=== PATIENT | female | born 1985 | race Caucasian/White ===

== ENCOUNTER 2016-11-04 15:16 | Emergency (ER) | payer OTHER ==
[~2016-11-04] VITALS: Ht 160 cm; Wt 47.7 kg
[2016-11-04 15:19] VITALS: BP 115/62; PULSE 90; RESP 16; O2SAT 100
[2016-11-04 16:15] LABS: BASOPHILS % (AUTO) 0.2 % (0-3); EOSINOPHILS % (AUTO) 0.5 % (0-5); MONOCYTES % (AUTO) 11.2 % (4-12); Mean Corpuscular Hemoglobin 28.1 pg (27.0-35.0); Mean Corpuscular Volume 85.9 fL (81-100); NEUTROPHILS % (AUTO) 72.3 % (40-74); Platelet Count 227 bil/L (150-400)
[2016-11-04] MEDS ORDERED: 0.9% Sodium Chloride 1,000 ML IV ONE (16:17)
[2016-11-04 16:20] LABS: Magnesium 1.8 mg/dL (1.6-2.6)
[2016-11-04] MEDS ORDERED: Ondansetron 2 mg/mL 2 mL Inj IVPUSH ONE (16:20)
[2016-11-04] MEDS: HYDROmorphone 0.5 mg/0.5 mL iSecure Syringe IVPUSH PRN ×3 (16:25→17:58)
--- NOTE | 2016-11-04 16:36 | ED.REPORT ---
HPI-General Illness Date of Service Nov 04, 2016 ED Provider: Noah Dc MD Pt is a 31 y/o female with a hx of kidney stones who reports to the ER complaining of severe LLQ abdominal pain onset 14 days ago, worsening in severity today. The patient radiates to her left flank and down into her groin. 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 Upon initial onset of pain 14 days ago pt took Macrobid for 5 days, which slightly improved symptoms. Pt has not yet passed a kidney stone that she knows of, as she has been straining her urine. Her pain is similar in quality to previous kidney stone. Pt had a kidney stone in [address] performed at the time. She reports associated chills and nausea but denies fever or vomiting. Nursing Notes Stated Complaint: POSSIBLE KIDNEY STONE Chief Complaint: Female Abdominal Pain Nursing Notes Reviewed: Yes Allergies: Coded Allergies: No Known Allergies (Unverified , 11/04/16) Scheduled Tamsulosin (Flomax) 0.4 Mg Capsule 0.4 MG PO DAILY Scheduled PRN Ondansetron ODT (Zofran ODT) 4 Mg Tablet 4 MG PO Q4H PRN PRN For Nausea oxyCODONE-Acetaminophen 5-325 mg (oxyCODONE-Acetaminophen 5-325 mg) 1 Each Tablet 1 TAB PO Q4H PRN PRN For Pain General Time Seen by MD: 15:28 Chief Complaint Abdominal pain (LLQ) Hx Obtained From: Patient Arrived By: Walk-in Sudden in Onset?: Yes Onset Occurred: More than a week ago... (2 weeks) Symptom Duration: Since onset Location: : Abdomen: Back Quality: Painful Severity: Current: Severe Severity: Maximum: Severe Recent Healthcare: No recent doctor visit, No recent hospitalization Similar Sx Previous: Yes Past Medical History Past Medical History kidney stones Past Surgical History none reported Smoking History Unknown if Ever Smoker Social History Alcohol Use: "Social" Other Social History: Good social support, Local resident Ambulatory Status Independent Review of Systems Full Review of Systems Constitutional: Reports: Chills, Malaise, Denies: Fever GI: Reports: Abdominal pain, Nausea, Denies: Vomiting Female: Reports: Flank pain, Hematuria, Urinary frequency Musculoskeletal: Reports: Back pain Complete sys rev & neg: except as marked. Physical Exam Vital Signs Vital Signs Date Time Temp Pulse Resp B/P Pulse Ox O2 Delivery O2 Flow Rate FiO2 11/04/16 18:09 66 16 94/57 97 Room Air 11/04/16 15:19 36.5 90 16 115/62 100 Room Air Initial VS: Reviewed Extremities: Vascular intact, Neuro intact Neurologic: Alert, Oriented, Nonfocal Psychiatric: Mood/affect normal, Behavior normal, Normal thought content General/Constitutional: Awake, Alert Head / Eyes: Atraumatic, Normocephalic, PERRL ENT: Airway patent, Mucous membranes moist Neck: Supple, Full range of motion Respiratory / Chest: Atraumatic, Breath sounds NL, Breath sounds = bilat, No respiratory distress, No rales, No rhonchi, No wheezing Cardiovascular: Heart rate NL, Regular rhythm, Heart sounds NL, No gallop, No murmurs, No rubs Tenderness/Guarding/Rebound: Positive: Tender LLQ... (Mild) Back: No midline vertebral tend Flank / Spine / Paraspinal: Positive: Flank tender L Skin: No rash, Warm, Dry Interpretation & Diagnostics CT KUB IMPRESSION: 1. A 3 x 5 m obstructing stone at the left UVJ causing mild left hydronephrosis and hydroureter. 2. Old granulomatous disease in the right lung base. Dictated by: Chris Ye M.D. on 11/04/2016 at 16:59 Approved by: Chris Ye M.D. on 11/04/2016 at 16:59 Lab Results Interpretation Result Diagram: 11/04/16 1530 11/04/16 1530 Test 11/04/16 15:30 White Blood Count 14.6th/mm3 (3.8-10.1) Red Blood Count 4.55mil/mm3 (3.90-5.20) Hemoglobin 12.8g/dL (12.0-15.6) Hematocrit 39.1% (35.0-46.0) Mean Corpuscular Volume 85.9fL (81-100) Mean Corpuscular Hemoglobin 28.1pg (27.0-35.0) Mean Corpuscular Hemoglobin Concent 32.7% (32.0-37.0) Red Cell Distribution Width 13.2% (12.3-15.4) Platelet Count 227bil/L (150-400) Neutrophils (%) (Auto) 72.3% (40-74) Lymphocytes (%) (Auto) 15.6% (14-46) Monocytes (%) (Auto) 11.2% (4-12) Eosinophils (%) (Auto) 0.5% (0-5) Basophils (%) (Auto) 0.2% (0-3) Hold Purple Top Tube Received (Received) Hold Blue Top Tube Received (Received) Hold Urine Received (Received) Sodium Level 134mEq/L (134-144) Potassium Level 3.3mEq/L (3.5-5.2) Chloride Level 97mEq/L (97-108) Carbon Dioxide Level 19mmol/L (18-29) Blood Urea Nitrogen 7mg/dL (6-20) Creatinine 0.71mg/dL (0.57-1.00) Estimat Glomerular Filtration Rate 136mL/min (>59) Glucose Level 89mg/dL (60-99) Calcium Level 9.0mg/dL (8.5-10.1) Magnesium Level 1.8mg/dL (1.6-2.6) Total Bilirubin 0.5mg/dL (0.0-1.2) Aspartate Amino Transf (AST/SGOT) 48U/L (0-50) Alanine Aminotransferase (ALT/SGPT) 39U/L (0-32) Alkaline Phosphatase 42U/L (25-150) Total Protein 7.5g/dL (6.4-8.4) Albumin 4.3g/dL (3.4-5.0) Lipase 20U/L (13-60) Hold [place] Top Tube Received (Received) Hold [place] Top Tube Received (Received) Re-Eval/Medical Decision Med Decision/Clinical Course In summary, the patient is a 31-year-old female with a history of kidney stones presents to the emergency department with severe colicky left-sided flank pain that is radiating to her left lower quadrant and associated with hematuria. 4 arrival she appears quite uncomfortable although is afebrile hemodynamically stable. She was treated with IV fluids, hydromorphone for pain and Toradol for pain. She reported significant subjective improvement. She reports that she has been having intermittent colicky pain for 14 days though it is significantly worse since today. CBC was notable for leukocytosis of 14 doses otherwise unremarkable. Metabolic panel was unremarkable with good kidney function. We opted to obtain a CT scan given the duration of her symptoms and concern for possible hydronephrosis. CT scan demonstrated 3 mm x 5 mm stone at the left ureterovesicular junction with associated mild hydronephrosis. Urinalysis demonstrated blood but no signs of urinary tract infection. Findings as above were discussed with on-call urologist. They feel the patient is appropriate for outpatient management with Flomax, analgesics and close follow-up. The patient was provided with a urine strainer and referral to urology. She will call tomorrow to arrange for a follow-up appointment. At this time there is no evidence of significant hydronephrosis, kidney injury or infected stone. She is tolerating PO. Follow-up and return precautions were reviewed in detail and she was discharged in good condition. Her presentation is not suggestive of acute surgical intra-abdominal process or ovarian torsion. test was negative. Source of Hx: Old records Time of Eval: 17:35 Patient Status: Condition unchanged Re-Evaluation/Progress Note: Pt rechecked. Pt informed of diagnosis of kidney stones. Informed pt of plan for treatment to contact urologist. Pt understands and agrees with plan for treatment. Consultation : Referral / Consult Name: Natali Mathis MD Consulted With: Urology Call Returned at: 17:35 Reactor Service Operator: Will see in office, Agrees with eval, Agrees with plan Note: Urologist consulted and agrees with plan to see her in the office. She can be discharged home. Counseled Regarding: Diagnosis, Lab results, Need for follow-up, When/why to return to ED Discharge & Departure Primary Impression: Kidney stones Additional Impressions: Renal colic Ureteral stone Hematuria Leukocytosis Leukocytosis type: unspecified Qualified Code: D72.829 - Elevated white blood cell count, unspecified Disposition: Home Discharge Condition All VS Reviewed: Yes Condition: Stable Additional Instructions: Thank you for seeking care at emergency room. You have a 3 x 5 mm kidney stone just about your bladder. We discussed this with the urologist and they think that there is a approximately 85% chance that he will be able to pass it. Please call first thing tomorrow morning to arrange for follow-up with the urologists. You will be discharged with a prescription for pain medication, nausea medication and Flomax. Please take these medications as directed. You should return to the ED immediately if you develop worsening pain, burning with urination, fevers, vomiting, cough, shortness of breath, chest pain, lightheadedness, weakness or any other concerning signs or symptoms. Thank you for letting us partake in your care today. Referrals: Nancy Jimenez (PCP) Natali Mathis MD Attestation Portion of this note were transcribed by Teresa Franz and Emmanuel Adkins. I, Dr. Dc, personally performed the history, physcial exam, and medical decision-making: I reviewed and confirmed the accuracy for the information in the transcribed note. Signed by: trang Blackburn, 11/04/16 1307 Signed by: Trang Mcfadden, 11/04/2016 0385 copies to: Natali Mathis MD; Nancy Jimenez Beck O MD Nov 04, 2016 16:35 EMMANUEL ADKINS Nov 04, 2016 16:45 Teresa Franz Nov 04, 2016 17:10
--- NOTE | 2016-11-04 17:01 | DRSVH ---
PROCEDURE: CT KUB ([id number]) INDICATIONS: renal colic TECHNIQUE: Noncontrast 5 mm thick sections acquired from the diaphragms to the symphysis. 5 mm thick coronal an d sagittal reformats were then performed. For radiation dose reduction, the following was used: aut omated exposure control, adjustment of mA and/or kV according to patient size. COMPARISON: [facility] , CT, CHEST W/O CONTRAST, 06/03/2011, 9:36. [facility], CT, KUB - CT (ABD/PEL W/O CONT), 11/18/2010, 2:13. FINDINGS: Image quality: Excellent. Lung bases: There are several calcified nodules in the right lower lobe, consistent with old granulom atous. Heart size is normal. Urinary system: There is a 3 x 5 mm stone at the left UVJ with CT density 313 HU, most likely a uric acid stone. There is mild left hydronephrosis and hydroureter. Mild perinephric stranding and fluid are present around the left kidney. Both kidneys are normal in size. Bladder wall thickness is luci l; no calcified bladder stones. Other solid organs: Liver and spleen are normal in size. Gallbladder is normal. Pancreas is normal in contours. No adrenal nodules. Peritoneum and bowel: Unenhanced bowel loops demonstrate normal wall thickness and caliber. No free fluid or air. Nodes and vessels: No retroperitoneal or mesenteric adenopathy by size criteria. Aorta and inferior vena cava are normal in caliber. Abdominal wall: No ventral hernias. Pelvis: No free pelvic fluid. No inguinal hernias or adenopathy. Bones: No suspicious bony lesions. No vertebral body compression fractures. IMPRESSION: 1. A 3 x 5 m obstructing stone at the left UVJ causing mild left hydronephrosis and hydroureter. 2. Old granulomatous disease in the right lung base. Dictated by: Chris Ye M.D. on 11/04/2016 at 16:59 Approved by: Chris Ye M.D. on 11/04/2016 at 16:59
[2016-11-04] MEDS ORDERED: OXYC1TAB24 PO (17:35)
[2016-11-04] MEDS ORDERED: TAMS0.4C98 PO (17:35)
[2016-11-04] MEDS ORDERED: ONDA4TAB9 PO (17:37)
[2016-11-04 18:09] VITALS: BP 94/57; PULSE 66; RESP 16; O2SAT 97
== END 2016-11-04 18:07 | disposition home or self-care (01) ==
LOC: SED 15:16
DX: N20.2 Calculus of kidney with calculus of ureter (principal); N23 Unspecified renal colic; R31.9 Hematuria, unspecified; D72.829 Elevated white blood cell count, unspecified
CPT/HCPCS: 74176; 80053; 81025; 83690; 83735; 85025; 96361; 96374; 96375; 96376; 99285; J1170; J2405; J7030